=== PATIENT | female | born 1985 | race African-American/Black ===

== ENCOUNTER 2016-06-11 13:12 | Emergency (ER) | payer MEDICAID ==
[~2016-06-11] VITALS: Ht 172.7 cm; Wt 81.0 kg
[~2016-06-11 13:12] MED LIST: ZOFR4TAB3 SL
[2016-06-11 13:13] VITALS: BP 132/61; PULSE 66; RESP 16; TEMP 97.6; O2SAT 98
[2016-06-11 13:42] VITALS: BP 102/66; PULSE 62; RESP 18; TEMP 97.9; O2SAT 100
[2016-06-11 15:16] LABS: BLOOD, URINE NEG (NEG); COMMENT (UR) CULT NOT INDICATED; CULTURE IF INDICATED CULT NOT INDICATED; GLUCOSE,URINE NEG (NEG); KETONE, URINE NEG (NEG); NITRITE,URINE NEG (NEG); SQUAMOUS EPITHELIAL CELL URINE 2 /hpf (0-5); URINE COLOR YELLOW (YELLW/STRAW)
--- NOTE | 2016-06-11 15:16 | PD ---
HPI Chief Complaint: Related Problem Time Seen by Provider: 14:03 Travel History International Travel<30 days: No Contact w/Intl Traveler<30days: No Traveled to known affect area: No History of Present Illness HPI This is a 30-year-old female who presents to the emergency department 12 weeks by dates with lower abdominal cramping is been present for 3 days, intermittent, sharp and stabbing, worse than pain she's had with pregnancies in the past. She denies any vaginal discharge, dysuria, frequency or urgency. She 's been 6 times in the past and has had 3 miscarriages. PFSH Past Medical History Asthma: Yes Cancer: No Cardiovascular Problems: No Diabetes: No Diminished Hearing: No Hepatitis: No Hiatal Hernia: No Hypertension: No Respiratory: Yes (ASTHMA) Thyroid Disease: No ?: : 4 Para: 2 Miscarriage: 2 : 0 Dilation and Curettage (D&C): Yes Past Surgical History Section: Yes Pacemaker: No Other Surgery: No Social History Alcohol Use: No Tobacco Use: No Substance Use: No Allergies-Medications (Allergen,Severity, Reaction): Coded Allergies: No Known Allergies (Verified , 06/11/16) Reported Meds & Prescriptions Reported Meds & Active Scripts Active Zofran Odt (Ondansetron Odt) 4 Mg Tab 4 Mg SL Q6HR PRN Review of Systems Except as stated in HPI: all other systems reviewed are Neg Physical Exam Narrative GENERAL: Well-nourished, well-developed patient. SKIN: Warm and dry. HEAD: Normocephalic. EYES: No scleral icterus. No injection or drainage. NECK: Supple, trachea midline. CARDIOVASCULAR: Regular rate and rhythm without murmurs. RESPIRATORY: Breath sounds equal bilaterally. No accessory muscle use. GASTROINTESTINAL: Abdomen soft, non-tender, nondistended. MUSCULOSKELETAL: No cyanosis, or edema. Data Data Last Documented VS Vital Signs Date Time Temp Pulse Resp B/P Pulse Ox O2 Delivery O2 Flow Rate FiO2 06/11/16 13:42 97.9 62 18 102/66 100 Room Air Orders Urinalysis - C+S If Indicated (06/11/16 14:04) Ed Poc Ultrasound (06/11/16 ) MDM Medical Decision Making Medical Screen Exam Complete: Yes Emergency Medical Condition: Yes Interpretation(s) Afebrile, normotensive Differential Diagnosis Urinary tract infection, ectopic , round ligament pain Narrative Course This is a 30-year-old female who presents to the emergency department with abdominal pain in the setting of early . A portable care ultrasound confirms an intrauterine with heart rate in the 180s. Urinalysis is negative for urinary tract infection. I don't suspect a surgical etiology of the patient's symptoms. She is very well-appearing. I think she can be discharged home. Procedures Procedure Narrative Ultrasound: Intrauterine with a heart rate of 182 Diagnosis Primary Impression: Abdominal pain affecting Patient Instructions: General Instructions Additional Instructions: If you develop severe or worsening abdominal pain, fever>100.4, persistent vomiting or inability to eat or drink return to the emergency department immediately. Follow-up with your certified scrub tech as scheduled. Med/Other Pt SpecificInfo: No Change to Meds Disposition: 01 DISCHARGE HOME Condition: Stable Anna Sotelo MD Jun 11, 2016 15:16
[2016-06-11] MEDS ORDERED: DOXY10TA PO (15:40)
[2016-06-11 16:36] VITALS: BP 134/66; TEMP 98.3
[2016-07-17] MEDS ORDERED: CONCCAP2 PO (09:15)
[2016-09-12] MEDS ORDERED: AMOX500T PO (16:39)
== END 2016-06-11 16:00 | disposition home or self-care (01) ==
LOC: NEPE 13:12
DX: O26.891 Other specified pregnancy related conditions, first trimester (principal); R10.30 Lower abdominal pain, unspecified; O26.21 Pregnancy care for patient with recurrent pregnancy loss, first trimester; Z3A.12 12 weeks gestation of pregnancy; Z87.09 Personal history of other diseases of the respiratory system
CPT/HCPCS: 81001; 99284

== ENCOUNTER 2016-12-31 01:35 | Inpatient (IN) | payer MEDICAID, OTHER ==
[~2016-12-31] VITALS: Ht 172.7 cm; Wt 92.5 kg
[2016-12-31] VITALS (16 sets, daily range): BP systolic 72–125; BP diastolic 21–60; PULSE 64–87; RESP 16–18; TEMP 97.9–98.6
[~2016-12-31 01:35] MED LIST changes: +AMOX500T PO; +CONCCAP2 PO; -ZOFR4TAB3 SL
--- NOTE | 2016-12-31 02:00 | PD ---
HPI Chief Complaint Contractions Date Seen: Dec 31, 2016 Time Seen: 01:48 Travel History International Travel<30 Days: No Contact w/Intl Traveler<30Days: No Known Affected Area: No History of Present Illness HPI 31-year-old she for at 40 weeks gestation per patient history. Patient has two prior C-sections, I have only one incision type which is low transverse from [place]. No incision type with her other . GBS was positive in her urine this . Patient refuses exam at present. Dr Nichole was here at the desk and checked the patient who is 7cm however patient refuses additional exams. Also has history of low platelets with this that was never followed up. Membranes ruptured here after arrival. Para: 3 : 4 History Past Medical History Medical History: Denies Significant Hx Obstetric History Obstetric History Repeat Allergies-Medications (Allergen,Severity, Reaction): Coded Allergies: No Known Allergies (Verified , 07/17/16) Home Meds Active Scripts Amoxicillin 500 Mg [id number] Mg PO TID #30 TAB Ref 0 Prov:Guerita Lloyd 09/12/16 Vit W/ Fe Fum-Iron Po (Concept Dha 53.5-38-1 mg)1 Cap Cap1 Tab PO DAILY #30 BOTTLE Ref 11 Prov:Guerita Lloyd 07/17/16 Vit W/ Fe Fum-Iron Po (Concept Dha 53.5-38-1 mg)1 Cap Cap Sample #3 Prov:Guerita Lloyd 07/17/16 Review of Systems Except as stated in HPI: all other systems reviewed are Neg (Difficult to assess as patient is verbally abusive) Physical Exam Narrative GENERAL: Well-nourished, well-developed patient. SKIN: Warm and dry. HEAD: Normocephalic and atraumatic. EYES: No scleral icterus. No injection or drainage. ENT: No nasal drainage noted. Mucous membranes pink. Airway patent. NECK: Supple, trachea midline. No JVD. CARDIOVASCULAR: Regular rate and rhythm without murmurs, gallops, or rubs. RESPIRATORY: Breath sounds equal bilaterally. No accessory muscle use. BREASTS: Bilateral exam showed no masses , no retractions, no nipple discharge. ABDOMEN/GI: Unable to examine as patient refuses GENITOURINARY: Patient refuses exam External Genitalia: intact and normal in appearance BUS glands: [-] Cervix: [-] Dilatation: [-] Effacement: [-] Station: [-] Presentation: [-] Membranes: [intact or ruptured] Grossly ruptured, clear Uterine Contractions: [-] Difficult to assess as patient is rolling from side to side, appears every 8 minutes FHT's: Category: [-1] Baseline: [-145] Reactive: [-mod] Variability: [mod-] Decels: [-absent] EXTREMITIES: No cyanosis or edema. BACK: Nontender without obvious deformity. No CVA tenderness. NEUROLOGICAL: Awake and alert. Motor and sensory grossly within normal limits. Five out of 5 muscle strength in all muscle groups. Normal speech. Data Data Vital Signs Reviewed: Yes Orders Ob (2e) Additional Admit Info (12/31/16 01:38) MDM Plan 31yo with two prior . Patient was almost just after her last . She is very verbally abusive to staff. I have counselled this patient that I cannot reasonably ascertain the safety of a after two prior cesareans if I do not have the op note for both. Althoug she had a successful after her first , she thereafter had another which may have increased her chances of encountering a uterine rupture with a vaginal delivery. Additionally, it is very difficult to monitor this patient due to extreme movement. I have recommended that the most safe mode of delivery with the medical records available would be repeat . Patient refuses stating that "I will deliver vaginally and I will marleny everyone." Diagnosis Diagnosis: Primary Impression: 40 weeks gestation of Additional Impressions: Previous delivery affecting , antepartum Poor patient attendance of care Positive GBS test Katiana Villanueva MD Dec 31, 2016 02:00
[2016-12-31] MEDS ORDERED: LACTATED RINGER'S 1000 ML INJ 1,000 ML IV PRN (02:01)
[2016-12-31] MEDS ORDERED: LACTATED RINGER'S 1000 ML INJ 1,000 ML IV SCH (02:01)
[2016-12-31] MEDS ORDERED: PENICILLIN G POTASSIUM INJ 5,000,000 UNITS in SODIUM CHLORIDE 0.9% INJ 100 ML IV ONE (02:15)
[2016-12-31] MEDS ORDERED: OXYTOCIN 30 UNITS-500ML PREMIX 500 ML IV ONE (02:15)
[2016-12-31] MEDS ORDERED: CITRIC ACID-SODIUM CITRATE LIQ 30 ML UDC PO SCH (02:15)
[2016-12-31] MEDS ORDERED: SODIUM CHLORID 0.9% 500 ML INJ 500 ML IV PRN (02:15)
[2016-12-31] MEDS ORDERED: LIDOCAINE HCL 1% 50 ML VIAL INFIL PRN (02:15)
[2016-12-31] MEDS ORDERED: MINERAL OIL 10 ML VIAL TOPICAL PRN (02:15)
[2016-12-31] MEDS ORDERED: ONDANSETRON HCL 4 MG/2 ML VIAL IV PRN (02:15)
[2016-12-31] MEDS ORDERED: LIDOCAINE HCL 1% 50 ML VIAL I-DERMAL PRN (02:15)
[2016-12-31] MEDS ORDERED: SODIUM CHLOR 0.9% 1000 ML INJ 1,000 ML IV PRN (02:21)
[2016-12-31 02:23] LABS: AUTOMATED NEUTROPHIL # 11.1 TH/MM3 (1.8-7.7); BASOPHIL # 0.1 TH/MM3 (0-0.2); BASOPHIL % 0.6 % (0.0-2.0); EOSINOPHIL # 0.1 TH/MM3 (0-0.4); EOSINOPHIL % 0.5 % (0.0-4.0); HEMATOCRIT 34.9 % (35.0-46.0); MEAN CELL VOLUME 88.2 FL (80.0-100.0); MEAN CORPUSCULAR HEMOGLOBIN 28.5 PG (27.0-34.0); MEAN CORPUSCULAR HGB CONC 32.3 % (32.0-36.0); MONO % 4.7 % (0.0-8.0); NEUT % 86.2 % (16.0-70.0); PLATELET COUNT 152 TH/MM3 (150-450); RED BLOOD COUNT 3.95 MIL/MM3 (4.00-5.30); RED CELL DISTRIBUTION WIDTH 13.9 % (11.6-17.2); WHITE BLOOD COUNT 12.9 TH/MM3 (4.0-11.0)
[2016-12-31 02:25] LABS: HEMO FLAGS AUTO DIFF
[2016-12-31 02:33] LABS: BLOOD GAS BASE EXCESS -4.3 mmol/L (-2-2); BLOOD GAS O2 HGB SATURATION 30 % (90-100); CORD BLOOD GAS HCO3 21 mmol/L (21-29); CORD BLOOD GAS PCO2 47 mmHG (34-78); CORD BLOOD GAS PH 7.28 (7.14-7.42); CORD BLOOD GAS PO2 19 mmHG (3.0-40.0)
[2016-12-31 02:34] LABS: DRAW SITE CORD BLOOD; STAT YES
--- NOTE | 2016-12-31 02:34 | HHI.HP ---
History & Physical H&P HPI HPI Chief Complaint Contractions Date Seen: Dec 31, 2016 Time Seen: 01:48 Travel History International Travel<30 Days: No Contact w/Intl Traveler<30Days: No Known Affected Area: No History of Present Illness HPI 31-year-old she for at 40 weeks gestation per patient history. Patient has two prior C-sections, I have only one incision type which is low transverse from [place]. No incision type with her other . GBS was positive in her urine this . Patient refuses exam at present. Dr Nichole was here at the desk and checked the patient who is 7cm however patient refuses additional exams. Also has history of low platelets with this that was never followed up. Membranes ruptured here after arrival. Para: 3 : 4 History (Limited) History Past Medical History Medical History: Denies Significant Hx Obstetric History Obstetric History Repeat Allergies-Medications Allergies-Medications (Allergen,Severity, Reaction): Coded Allergies: No Known Allergies (Verified , 07/17/16) Home Meds Active Scripts Amoxicillin 500 Mg Cvr087 Mg PO TID #30 TAB Ref 0 Prov:Guerita Lloyd 09/12/16 Vit W/ Fe Fum-Iron Po (Concept Dha 53.5-38-1 mg)1 Cap Cap1 Tab PO DAILY #30 BOTTLE Ref 11 Prov:Guerita Lloyd 07/17/16 Vit W/ Fe Fum-Iron Po (Concept Dha 53.5-38-1 mg)1 Cap Cap Sample #3 Prov:Guerita Lloyd 07/17/16 ROS Review of Systems Except as stated in HPI: all other systems reviewed are Neg (Difficult to assess as patient is verbally abusive) Physical Exam Physical Exam Narrative GENERAL: Well-nourished, well-developed patient. SKIN: Warm and dry. HEAD: Normocephalic and atraumatic. EYES: No scleral icterus. No injection or drainage. ENT: No nasal drainage noted. Mucous membranes pink. Airway patent. NECK: Supple, trachea midline. No JVD. CARDIOVASCULAR: Regular rate and rhythm without murmurs, gallops, or rubs. RESPIRATORY: Breath sounds equal bilaterally. No accessory muscle use. BREASTS: Bilateral exam showed no masses , no retractions, no nipple discharge. ABDOMEN/GI: Unable to examine as patient refuses GENITOURINARY: Patient refuses exam External Genitalia: intact and normal in appearance BUS glands: [-] Cervix: [-] Dilatation: [-] Effacement: [-] Station: [-] Presentation: [-] Membranes: [intact or ruptured] Grossly ruptured, clear Uterine Contractions: [-] Difficult to assess as patient is rolling from side to side, appears every 8 minutes FHT's: Category: [-1] Baseline: [-145] Reactive: [-mod] Variability: [mod-] Decels: [-absent] EXTREMITIES: No cyanosis or edema. BACK: Nontender without obvious deformity. No CVA tenderness. NEUROLOGICAL: Awake and alert. Motor and sensory grossly within normal limits. Five out of 5 muscle strength in all muscle groups. Normal speech. Data Data Data Vital Signs Reviewed: Yes Orders Ob (2e) Additional Admit Info (12/31/16 01:38) MDM MDM Plan 31yo with two prior . Patient was almost just after her last . She is very verbally abusive to staff. I have counselled this patient that I cannot reasonably ascertain the safety of a after two prior cesareans if I do not have the op note for both. Althoug she had a successful after her first , she thereafter had another which may have increased her chances of encountering a uterine rupture with a vaginal delivery. Additionally, it is very difficult to monitor this patient due to extreme movement. I have recommended that the most safe mode of delivery with the medical records available would be repeat . Patient refuses stating that "I will deliver vaginally and I will marleny everyone." Diagnosis Diagnosis: Primary Impression: 40 weeks gestation of Additional Impressions: Previous delivery affecting , antepartum Poor patient attendance of care Positive GBS test Katiana Villanueva MD Dec 31, 2016 02:34
[2016-12-31] MEDS ORDERED: ZOLPIDEM TARTRATE 5 MG TAB PO PRN (02:45)
[2016-12-31] MEDS ORDERED: OXYTOCIN 30 UNITS-500ML PREMIX 500 ML IV SCH (02:45)
[2016-12-31] MEDS ORDERED: DOCUSATE SODIUM 50 MG/SENNA 8.6 MG TAB PO PRN (02:45)
[2016-12-31] MEDS ORDERED: BENZOCAINE 20% TOPICAL SPRAY 60 ML CAN TOPICAL PRN (02:45)
[2016-12-31] MEDS ORDERED: ONDANSETRON ODT 4 MG TAB PO PRN (02:45)
[2016-12-31] MEDS ORDERED: IBUPROFEN 600 MG TAB PO PRN (02:45)
[2016-12-31] MEDS ORDERED: WITCH HAZEL 50%/GLYCERIN 12.5% 40 PAD JAR TOPICAL PRN (02:45)
[2016-12-31] MEDS ORDERED: SODIUM CHLORIDE 0.9% FLUSH 10 ML FLUSH IV FLUSH PRN (02:45)
[2016-12-31] MEDS ORDERED: ACETAMINOPHEN 325 MG TAB PO PRN (02:45)
[2016-12-31] MEDS ORDERED: ALUMINUM/MAGNESIUM/SIMETH 30 ML CUP PO PRN (02:45)
[2016-12-31 02:48] LABS: PLATELET ESTIMATE SMEAR NORMAL (NORMAL); PLATELET MORPHOLOGY NORMAL (NORMAL); SCAN/DIFF AUTO DIFF CONFIRMED
--- NOTE | 2016-12-31 03:00 | PD.OB.DELI ---
Delivery Date: Dec 31, 2016 Anesthesia: None Episiotomy: None Vaginal Delivery: Normal, Spontaneous, , Precipitous Presentation: Occiput anterior Nuchal Cord: x1 Delayed cord clamping (45 sec): No (Thick meconium noted) : Female, Single One Minute : 8 Five Minute : 9 Weight: 2965gms Placenta: Spontaneous delivery, Intact, 3 vessel cord, Cord pH Laceration: Vaginal laceration, 2 deg (Right periurethral laceration extending into the vagina. Second degree midline laceration repaired) Repair: Chromic running Additional Information EBL 300cc Katiana Villanueva MD Dec 31, 2016 03:00
[2016-12-31 03:32] LABS: AMPHETAMINE, URINE NEG (NEG); BARBITURATES, URINE NEG (NEG); BLOOD, URINE SMALL (NEG); COCAINE, URINE NEG (NEG); COMMENT (UR) CULTURE INDICATED; CULTURE IF INDICATED CULTURE INDICATED; GLUCOSE,URINE NEG (NEG); KETONE, URINE 150 mg/dL (NEG); MUCUS URINE FEW /lpf (OCC); NITRITE,URINE NEG (NEG); PH, URINE 6.5 (5.0-8.5); SQUAMOUS EPITHELIAL CELL URINE 3 /hpf (0-5); URINE COLOR YELLOW (YELLW/STRAW)
[2016-12-31] MEDS ORDERED: PENICILLIN G POTASSIUM INJ 2,500,000 UNITS in SODIUM CHLORIDE 0.9% INJ 100 ML IV SCH (06:15)
[2016-12-31] MEDS ORDERED: SODIUM CHLORIDE 0.9% FLUSH 10 ML FLUSH IV FLUSH SCH (09:00)
--- NOTE | 2016-12-31 09:09 | HHI.OB ---
Subjective Post Day: 0 Remarks day #0. AFVSS overnight. Pain well controlled without medication. Lochia is more than a period [moderate]. Denies dysuria. She is feeding the baby via breast. Appetite good. No nausea or vomiting. No flatus. Known bowel movement. Ambulating well. Denies calf pain, shortness of breath, or cough. Otherwise, she is doing well this morning and has no other complaints. Objective Vitals/I&O Vital Signs Date Time Temp Pulse Resp B/P Pulse Ox O2 Delivery O2 Flow Rate FiO2 12/31/16 08:00 97.9 80 16 12/31/16 08:00 114/60 12/31/16 05:05 98.5 64 18 104/49 12/31/16 03:35 16 12/31/16 03:31 70 121/47 12/31/16 03:20 16 12/31/16 03:16 68 122/56 12/31/16 03:11 67 95/58 12/31/16 03:05 18 12/31/16 03:01 72 72/21 12/31/16 02:58 18 12/31/16 02:46 83 114/35 12/31/16 02:45 18 12/31/16 02:31 80 125/51 12/31/16 02:30 18 12/31/16 02:16 86 123/45 Objective Remarks GENERAL: Well-nourished, well-developed patient. CARDIOVASCULAR: Regular rate and rhythm without murmurs, gallops, or rubs. RESPIRATORY: Breath sounds equal bilaterally. No accessory muscle use. ABDOMEN/GI: Abdomen soft, non-tender. Fundus: Firm, non-tender above umbilicus and deviated to the right GENITOURINARY: Moderate bleeding. EXTREMITIES: No cyanosis or edema, non-tender, without signs of DVT. Medications and IVs Current Medications Medications (Trade) Dose Ordered Sig/Joaquin Route Start Time Stop Time Status Last Admin (NS Flush) 2 ml BID IV FLUSH 12/31/16 09:00 (NS Flush) 2 ml UNSCH PRN IV FLUSH 12/31/16 02:45 (Tylenol) 650 mg Q4H PRN PO 12/31/16 02:45 (Motrin) 600 mg Q6H PRN PO 12/31/16 02:45 (Percocet 5-325 Mg) 1 tab Q4H PRN PO 12/31/16 02:45 (Americaine 20% Top Spr) 1 spray Q4H PRN TOPICAL 12/31/16 02:45 (Tucks Pads) 1 applic QID PRN TOPICAL 12/31/16 02:45 (Nadya-Colace) 2 tab Q12H PRN PO 12/31/16 02:45 (Ambien) 5 mg HS PRN PO 12/31/16 02:45 (M-M-R Ii Inj) 0.5 ml ONCE ONCE SQ 12/31/16 16:00 12/31/16 16:01 (Boostrix Inj) 0.5 ml ONCE ONCE IM 12/31/16 16:00 12/31/16 16:01 (Mag-Al Plus Susp Liq) 15 ml Q8H PRN PO 12/31/16 02:45 (Zofran Odt) 4 mg Q6H PRN PO 12/31/16 02:45 Assessment/Plan Assessment and Plan 31y/o female who is PPD#0 s/p -Continue routine care -Motrin and Percocet PRN for pain - patient is refusing pain medications at this time -Pericolase PRN for constipation, tucks pads and benzocaine for hemorrhoids -Encouraged OOB. Advised pelvic rest for 6 wks -Will need a follow-up appointment within 6 wks -Patient does not want control Discussed with Dr. Villanueva Discharge Planning Discharge home in 1-2 days Maria M Tobar MD R1 Dec 31, 2016 09:09
[2016-12-31] MEDS ORDERED: MEASLES, MUMPS, RUBELLA VACCINE 0.5 ML VIAL SQ ONE (16:00)
[2016-12-31] MEDS ORDERED: DIPHTH/TETANUS/ACEL PERTUSSIS (BOOSTER) 0.5 ML VIAL/PFS IM ONE (16:00)
[2017-01-01 08:00] VITALS: BP 83/52; PULSE 59; RESP 18; TEMP 98.4
--- NOTE | 2017-01-01 08:58 | HHI.OB ---
Subjective Post Day: 1 Remarks Patient is a 31-year-old delivered at 40 weeks. Patient is day one after a . Patient's pain is minimal; patient is not requiring pain medication at this time. Patient reports moderate bleeding. Patient denies chest pain and shortness of breath. Patient reports eating and drinking without any nausea or vomiting. Patient has passed gas but has not had a bowel movement. Patient is walking without lower extremity pain. Patient states that she will think about options for contraception. Patient has decided to breast- feed. Objective Vitals/I&O Vital Signs Date Time Temp Pulse Resp B/P Pulse Ox O2 Delivery O2 Flow Rate FiO2 12/31/16 20:00 98.6 87 18 96/53 Objective Remarks GENERAL: Well-nourished, well-developed patient. CARDIOVASCULAR: Regular rate and rhythm without murmurs, gallops, or rubs. RESPIRATORY: Breath sounds equal bilaterally. No accessory muscle use. ABDOMEN/GI: Abdomen soft, non-tender. Fundus: Firm, non-tender above umbilicus and deviated to the right. GENITOURINARY: Moderate bleeding. EXTREMITIES: No cyanosis or edema, non-tender, without signs of DVT. Medications and IVs Current Medications Medications (Trade) Dose Ordered Sig/Joaquin Route Start Time Stop Time Status Last Admin (NS Flush) 2 ml BID IV FLUSH 12/31/16 09:00 (NS Flush) 2 ml UNSCH PRN IV FLUSH 12/31/16 02:45 (Tylenol) 650 mg Q4H PRN PO 12/31/16 02:45 (Motrin) 600 mg Q6H PRN PO 12/31/16 02:45 (Percocet 5-325 Mg) 1 tab Q4H PRN PO 12/31/16 02:45 (Americaine 20% Top Spr) 1 spray Q4H PRN TOPICAL 12/31/16 02:45 12/31/16 13:45 (Tucks Pads) 1 applic QID PRN TOPICAL 12/31/16 02:45 12/31/16 13:44 (Nadya-Colace) 2 tab Q12H PRN PO 12/31/16 02:45 (Ambien) 5 mg HS PRN PO 12/31/16 02:45 (Mag-Al Plus Susp Liq) 15 ml Q8H PRN PO 12/31/16 02:45 (Zofran Odt) 4 mg Q6H PRN PO 12/31/16 02:45 Assessment/Plan Assessment and Plan 31y/o who is PPD#1 s/p . * Continue routine care. * Motrin and Percocet PRN for pain - patient is not requiring pain meds at this time. * Pericolase PRN for constipation, tucks pads and benzocaine for hemorrhoids. * Encouraged OOB. * Advised pelvic rest for 6 wks. * Will need a follow-up appointment within 6 wks. * Contraception: undecided. * Discharge tomorrow. jennifer Rios Discharge Planning Discharge home in 1-2 days Shweta Hammonds MD R1 Jan 01, 2017 08:58
[2017-01-01 14:21] LABS: RAPID PLASMA REAGIN SCREEN NON-REACTIVE (NON-REACTVE)
[2017-01-01 19:49] VITALS: BP 109/56; PULSE 76; RESP 18; TEMP 98.1
[2017-01-02] MEDS: oxyCODONE/ACETAMINOPHEN 5 MG/325 MG TAB PO PRN ×2 (06:17→10:26)
[2017-01-02 07:55] VITALS: BP 110/58; PULSE 65; RESP 18; TEMP 97.7
[2017-01-02] MEDS ORDERED: IBUP-232 PO (09:13)
--- NOTE | 2017-01-02 09:13 | HHI.DCPOC ---
Discharge Care Plan Diagnosis: (1) Your Health Problems Are: Vaginal delivery Report Symptoms to Your Doctor -Temperature above 100.5 degrees -Redness, of incision or excessive or foul smelling drainage -Unusual pain or calf pain -Increased vaginal bleeding -Painful or difficulty urinating -Feelings of extreme sadness or anxiety after 2 weeks Directions to Meet Your Goals Take your medications as prescribed Follow your dietary instruction Follow activity as directed Ensure plenty of rest for recovery Drink fluids for hydration Keep your appointments as scheduled Take your immunizations and boosters as scheduled If your symptoms worsen call your PCP, if no PCP go to Urgent Care Center or Emergency Room Smoking is Dangerous to Your Health. Avoid second hand smoke Call the 24-hour crisis hotline for domestic abuse at Shweta Hammonds MD R1 Jan 02, 2017 09:13
--- NOTE | 2017-01-02 10:18 | HHI.OB ---
Subjective Post Day: 2 Remarks Patient is a 31-year-old delivered at 40 weeks. Patient is day 2 after a . Patient's pain is controlled; patient asked for pain medication this morning. Patient reports moderate bleeding. Patient denies chest pain and shortness of breath. Patient reports eating and drinking without any nausea or vomiting. Patient has passed gas but has not had a bowel movement. Patient is walking without lower extremity pain. Patient states that she will think about options for contraception. Patient has decided to breast-feed. Objective Vitals/I&O Vital Signs Date Time Temp Pulse Resp B/P Pulse Ox O2 Delivery O2 Flow Rate FiO2 01/01/17 19:49 76 18 109/56 01/01/17 19:49 98.1 Objective Remarks GENERAL: Well-nourished, well-developed patient. CARDIOVASCULAR: Regular rate and rhythm without murmurs, gallops, or rubs. RESPIRATORY: Breath sounds equal bilaterally. No accessory muscle use. ABDOMEN/GI: Abdomen soft, non-tender. Fundus: Firm, non-tender, below umbilicus. GENITOURINARY: Moderate bleeding. EXTREMITIES: No cyanosis or edema, non-tender, without signs of DVT. Medications and IVs Current Medications Medications (Trade) Dose Ordered Sig/Joaquin Route Start Time Stop Time Status Last Admin (NS Flush) 2 ml BID IV FLUSH 12/31/16 09:00 (NS Flush) 2 ml UNSCH PRN IV FLUSH 12/31/16 02:45 (Tylenol) 650 mg Q4H PRN PO 12/31/16 02:45 (Motrin) 600 mg Q6H PRN PO 12/31/16 02:45 01/02/17 03:52 (Percocet 5-325 Mg) 1 tab Q4H PRN PO 12/31/16 02:45 01/02/17 06:17 (Americaine 20% Top Spr) 1 spray Q4H PRN TOPICAL 12/31/16 02:45 12/31/16 13:45 (Tucks Pads) 1 applic QID PRN TOPICAL 12/31/16 02:45 12/31/16 13:44 (Nadya-Colace) 2 tab Q12H PRN PO 12/31/16 02:45 01/02/17 08:03 (Ambien) 5 mg HS PRN PO 12/31/16 02:45 (Mag-Al Plus Susp Liq) 15 ml Q8H PRN PO 12/31/16 02:45 (Zofran Odt) 4 mg Q6H PRN PO 12/31/16 02:45 Assessment/Plan Assessment and Plan 31y/o who is PPD#2 s/p . * Continue routine care. * Motrin and Percocet PRN for pain. * Pericolase PRN for constipation, tucks pads and benzocaine for hemorrhoids. * Encouraged OOB. * Advised pelvic rest for 6 wks. * Will need a follow-up appointment within 6 wks. * Contraception: undecided. * Discharge today. dw Dr. Tello Discharge Planning Discharge home in 1-2 days Shweta Hammonds MD R1 Jan 02, 2017 10:18 Shweta Hammonds MD R1 Jan 02, 2017 10:18
[2017-01-04 10:19] LABS: OBMETHADONE UR NEG (NEG); PHENCYCLIDINE URINE NEG (NEG)
[2017-01-04 10:20] LABS: BATH SALTS (MDPV) UR NEG (NEG); ECSTASY (MDMA) UR NEG (NEG); GABAPENTIN UR NEG (NEG); HEROIN (6-ACETYLMORPHINE) UR NEG (NEG); HYDROMORPHONE U NEG (NEG); K2 SPICE UR NEG (NEG); OXYCODONE (PERCODAN) NEG (NEG)
== END 2017-01-02 16:27 | disposition home or self-care (01) | DRG 775 ==
LOC: HOBED 01:35 → H2EA 01:38 → H1EA 04:45
PROVIDERS: ADMIT Obstetrics & Gynecology Obstetrics; ATTEND Obstetrics & Gynecology Obstetrics
PROC: 10E0XZZ Delivery of Products of Conception, External Approach (ICD-10-PCS; principal; 2016-12-31)
PROC: 0KQM0ZZ Repair Perineum Muscle, Open Approach (ICD-10-PCS; 2016-12-31)
DX: O34.211 Maternal care for low transverse scar from previous cesarean delivery (principal); D69.6 Thrombocytopenia, unspecified; O99.12 Other diseases of the blood and blood-forming organs and certain disorders involving the immune mechanism complicating childbirth; O70.1 Second degree perineal laceration during delivery; O99.824 Streptococcus B carrier state complicating childbirth; Z37.0 Single live birth; Z3A.40 40 weeks gestation of pregnancy
CPT/HCPCS: 80307; 81001; 82805; 84112; 85025; 86592; 86703; 87086; 88307; G0481; J2590; J7120

== ENCOUNTER 2018-07-18 03:56 | Inpatient (IN) ==
[2018-07-18] MEDS ORDERED: Naloxone Inj 0.4 MG/ML Vial IV.PUSH PRN ×2 (04:29→09:30)
[2018-07-18] MEDS ORDERED: fentaNYL Citrate Inj 100 MCG/2 ML Ampul IV.PUSH PRN ×2 (04:29)
[2018-07-18] MEDS ORDERED: Sod Chloride 0.9% Inj 1,000 ML IV.CONT PRN (04:29)
[2018-07-18] MEDS ORDERED: Penicillin G Potassium Inj 5,000,000 UNIT in Sodium Chloride 0.9% Inj 100 ML IV.SIG ONE (04:29)
[2018-07-18] MEDS ORDERED: Oxytocin 30 Units/500ml Premix 30 UNITS/500 ML BAG IV.SIG ONE (04:29)
[2018-07-18] MEDS ORDERED: Sodium Chlor 0.9% Inj 500 ML IV.SIG PRN (04:29)
[2018-07-18] MEDS ORDERED: Citric Acid/Sodium Citrate Liq 30 ML UDC PO SCH (04:30)
--- NOTE | 2018-07-18 04:36 | ED ---
History of Present Illness Primary Care Physician: NOT REQUIRED Maisha Lane Chief Complaint: Contractions and water broke History of Present Illness: Patient is 32-year-old black female at 40 weeks with spontaneous rupture membranes and contractions sent in by Maisha Lane. Amnio sure is positive she is gross rupture membranes as well, contractions are noted she is in active labor at this time, heart rate tracing reactive Weeks Gestation:: 40 Para: 3 : 4 - Inpatient Certification I certify that the inpatient services were ordered in accordance with Medicare regulations governing the order. This includes certification that hospital inpatient services are reasonable and necessary and in the case of services not specified as inpatient-only under 42 CFR 419.22(n), that they are appropriately provided as inpatient services in accordance to with the 2-midnight benchmark under 43 CFR 412.3(e) Estimated Total Length of Stay (Days): 3 Plans for Post Hospital Care: Home Review of Systems All other systems reviewed negative except as stated in HPI [facility], [facility] - Medical History Medical History: Medical History (Last Updated 07/18/18 @ 04:33 by Jose Alfredo Tello MD) Asthma - Tobacco History Smoking Status: Never smoker - Alcohol History How Often Do You Have a Drink Containing Alcohol: Never - Substance Use History Substance History: No History of Abuse - Travel History History of Recent Travel: No Recent Travel in the [place] Within the Last 8 Weeks: No Recent Travel Out of the Country Within the Last 8 Weeks: No Medications and Allergies Active Medications: Active Medications Citric Acid/Sodium Citrate (Sodium Citrate/Citric Acid Liq) 30 ml PO [facility] Stop: 07/22/18 04:29 Fentanyl Citrate (Fentanyl Inj) 50 mcg IV.PUSH Q1H PRN PRN Reason: Pain Scale 3 - 5 Fentanyl Citrate (Fentanyl Inj) 100 mcg IV.PUSH Q1H PRN PRN Reason: PAIN SCALE 6 TO 10 Lactated Ringer's (Lr 1000 Ml Inj) 1,000 mls @ 3,000 mls/hr IV.SIG UNSCH PRN PRN Reason: compromise or epidural Lactated Ringer's (Lr 1000 Ml Inj) 1,000 mls @ 125 mls/hr IV.CONT .Q8H [facility] Sodium Chloride (Ns Inj) 1,000 mls @ 100 mls/hr IV.CONT .Q10H PRN PRN Reason: SEE LABEL COMMENTS Lidocaine HCl (Xylocaine 1% Inj) 0.1 ml I-DERMAL PRN PRN PRN Reason: For IV start Stop: 07/21/18 04:28 Lidocaine HCl (Xylocaine 1% Inj) 10 ml INFILTRATN PRN PRN PRN Reason: For episiotomy repair Stop: 07/20/18 04:28 Mineral Oil (Muri-Lube Oil) 10 ml TOPICAL PRN PRN PRN Reason: PRN perineal massage Naloxone HCl (Narcan Inj) 0.1 mg IV.PUSH Q2M PRN PRN Reason: for opiate reversal Allergies Allergy/AdvReac Type Severity Reaction Status Date / Time No Known Allergies Allergy Uncoded 12/31/16 05:22 Exam Vital signs: Vital Signs 07/18/18 04:15 Respiratory Rate 16 Narrative: GENERAL: Well-nourished, well-developed patient. SKIN: Warm and dry. HEAD: Normocephalic and atraumatic. EYES: No scleral icterus. No injection or drainage. ENT: No nasal drainage noted. Mucous membranes pink. Airway patent. NECK: Supple, trachea midline. No JVD. CARDIOVASCULAR: Regular rate and rhythm without murmurs, gallops, or rubs. RESPIRATORY: Breath sounds equal bilaterally. No accessory muscle use. BREASTS: Bilateral exam showed no masses , no retractions, no nipple discharge. ABDOMEN/GI: Abdomen soft, non-tender, bowel sounds present, no rebound, no guarding Gravid to [40-] weeks size Fundal Height: [-40] GENITOURINARY: External Genitalia: intact and normal in appearance BUS glands: [-] Cervix: [mid-] Dilatation: [4-] Effacement: [-100] Station: [0-] Presentation: [-vtx] Membranes: [ ruptured] Uterine Contractions: [reg-] FHT's: Category: [1-] Baseline: [-133] Reactive: [-R] Variability: [mod-] Decels: [none-] EXTREMITIES: No cyanosis or edema. BACK: Nontender without obvious deformity. No CVA tenderness. NEUROLOGICAL: Awake and alert. Motor and sensory grossly within normal limits. Five out of 5 muscle strength in all muscle groups. Normal speech. Results - Labs Group B Strep: Positive Assessment and Plan - Diagnosis (1) Amniotic fluid leaking Code(s): O42.90 - Premature rupture of membranes, unspecified as to length of time between rupture and onset of labor, unspecified weeks of gestation Status : Acute (2) Uterine contractions during Code(s): O62.2 - Other uterine inertia Status: Acute (3) 40 weeks gestation of Code(s): Z3A.40 - 40 weeks gestation of Status: Acute - Plan Plan admit this multiparous patient to labor and delivery, began IV penicillin per GBS protocol, monitor fetus and mother, anticipate vaginal delivery Discharge Plan - Physicians Team ED Provider: Jose Alfredo Tello Primary Care Provider: NOT REQUIRED, - Discharge Instructions Print Language: Maori
[2018-07-18] MEDS ORDERED: Lidocaine 1% Inj 50 ML Vial ONE (04:52)
[2018-07-18] MEDS ORDERED: fentaNYL 2MCG-Bupiv 0.125% Epi 150 ML EPIDURAL ONE (04:57)
[2018-07-18 04:58] LABS: Baso # (Auto) 0.1 th/mm3 (0.0-0.2); Baso % (Auto) 0.7 % (0.0-2.0); Eos # (Auto) 0.2 th/mm3 (0.0-0.4); Eos % (Auto) 1.3 % (0.0-4.0); Hematocrit 31.6 % (35.0-46.0); Hemoglobin 10.3 gm/dL (11.6-15.3); Lymph # (Auto) 1.6 th/mm3 (1.0-4.8); Lymph % (Auto) 12.7 % (9.0-44.0); Mean Corpuscular HGB Conc 32.6 % (32.0-36.0); Mean Corpuscular Volume 85.9 fL (80.0-100.0); Mean Platelet Volume 9.9 fL (7.0-11.0); Mono # (Auto) 0.9 th/mm3 (0.0-0.9); Mono % (Auto) 7.2 % (0.0-8.0); Neut # (Auto) 9.7 th/mm3 (1.8-7.7); Neut % (Auto) 78.1 % (16.0-70.0); Platelet Count 119 th/mm3 (150-450); Red Blood Count 3.68 mil/mm3 (4.00-5.30); Red Cell Distribution Width 15.4 % (11.6-17.2); White Blood Count 12.4 th/mm3 (4.0-11.0)
[2018-07-18] MEDS ORDERED: Penicillin G Potassium Inj 2,500,000 UNIT in Sodium Chlor 0.9% Inj 100 ML IV.SIG SCH (05:00)
[2018-07-18] MEDS ORDERED: Lidocaine PF 1% Inj 5 ML Vial ONE (05:54)
[2018-07-18] MEDS ORDERED: Lidocaaine 1.5%/Epinephrine 1:200,000 PF Inj 5 ML Amp ONE (05:54)
[2018-07-18] MEDS ORDERED: fentaNYL 2MCG-Bupiv 0.125% Epi 150 ML EPIDURAL PRN (05:58)
[2018-07-18] MEDS ORDERED: fentaNYL Citrate Inj 100 MCG/2 ML Ampul EPIDURAL ONE (05:58)
--- NOTE | 2018-07-18 08:12 | P.OBDELI ---
Weeks Gestation: 40 Patient Started Active Labor: Yes Medical Induction of Labor: No Artificial Rupture of Membrane: No Anesthesia: Epidural Episiotomy: none Vaginal Delivery: Normal, Spontaneous, Presentation: Occiput anterior Nuchal Cord: None Delayed Cord Clamping (45 sec): Yes Placenta: Spontaneous delivery Laceration: 2 deg (bilateral labial laceration repaired. Hemostasis maintained. ) Repair: Chromic running, Vicryl running Estimated blood loss (mL): 150 Male A Delivery Date: 07/18/18 Infant Delivery Time: 07:32 Weight: 3.615 kg score (1 min): 8 score (5 min): 9 Additional Information: Delivered by Dr. Robles Supervised by Dr. Tello.
[2018-07-18] MEDS ORDERED: Benzocaine 20% Top Spray 60 ML Can TOPICAL PRN (09:30)
[2018-07-18] MEDS ORDERED: Oxytocin 30 Units/500ml Premix 30 UNITS/500 ML BAG IV.CONT PRN (09:30)
[2018-07-18] MEDS ORDERED: Acetaminophen 325 MG Tablet PO PRN (09:30)
[2018-07-18] MEDS ORDERED: Witch Hazel 50%/Glyderin 12.5% 40 Pad Jar RECTAL PRN (09:30)
[2018-07-18] MEDS ORDERED: Bisacodyl 10 MG Supp RECTAL PRN (09:30)
--- NOTE | 2018-07-18 09:34 | P.HPOB ---
Patient Name: Christa Ceja Date of : 89 Patient Status: Inpatient Attending Provider: Jose Alfredo Tello Date: 07/18/18 04:31 Initialization Date: 07/18/18 04:31 History of Present Illness Primary Care Physician: NOT REQUIRED Maisha Lane Chief Complaint: Contractions and water broke History of Present Illness: Patient is 32-year-old black female at 40 weeks with spontaneous rupture membranes and contractions sent in by Maisha Lane. Amnio sure is positive she is gross rupture membranes as well, contractions are noted she is in active labor at this time, heart rate tracing reactive Weeks Gestation:: 40 Para: 3 : 4 - Inpatient Certification I certify that the inpatient services were ordered in accordance with Medicare regulations governing the order. This includes certification that hospital inpatient services are reasonable and necessary and in the case of services not specified as inpatient-only under 42 CFR 419.22(n), that they are appropriately provided as inpatient services in accordance to with the 2-midnight benchmark under 43 CFR 412.3(e) Estimated Total Length of Stay (Days): 3 Plans for Post Hospital Care: Home Review of Systems All other systems reviewed negative except as stated in [facility] - Medical History Medical History: Medical History (Last Updated 07/18/18 @ 04:33 by Jose Alfredo Tello MD) Asthma - Tobacco History Smoking Status: Never smoker - Alcohol History How Often Do You Have a Drink Containing Alcohol: Never - Substance Use History Substance History: No History of Abuse - Travel History History of Recent Travel: No Recent Travel in the [place] Within the Last 8 Weeks: No Recent Travel Out of the Country Within the Last 8 Weeks: No Medications and Allergies Active Medications: Active Medications Citric Acid/Sodium Citrate (Sodium Citrate/Citric Acid Liq) 30 ml PO [employer] [facility] Stop: 07/22/18 04:29 Fentanyl Citrate (Fentanyl Inj) 50 mcg IV.PUSH Q1H PRN PRN Reason: Pain Scale 3 - 5 Fentanyl Citrate (Fentanyl Inj) 100 mcg IV.PUSH Q1H PRN PRN Reason: PAIN SCALE 6 TO 10 Lactated Ringer's (Lr 1000 Ml Inj) 1,000 mls @ 3,000 mls/hr IV.SIG UNSCH PRN PRN Reason: compromise or epidural Lactated Ringer's (Lr 1000 Ml Inj) 1,000 mls @ 125 mls/hr IV.CONT .Q8H [facility] Sodium Chloride (Ns Inj) 1,000 mls @ 100 mls/hr IV.CONT .Q10H PRN PRN Reason: SEE LABEL COMMENTS Lidocaine HCl (Xylocaine 1% Inj) 0.1 ml I-DERMAL PRN PRN PRN Reason: For IV start Stop: 07/21/18 04:28 Lidocaine HCl (Xylocaine 1% Inj) 10 ml INFILTRATN PRN PRN PRN Reason: For episiotomy repair Stop: 07/20/18 04:28 Mineral Oil (Muri-Lube Oil) 10 ml TOPICAL PRN PRN PRN Reason: PRN perineal massage Naloxone HCl (Narcan Inj) 0.1 mg IV.PUSH Q2M PRN PRN Reason: for opiate reversal Allergies Allergy/AdvReac Type Severity Reaction Status Date / Time No Known Allergies Allergy Uncoded 12/31/16 05:22 Exam Vital signs: Vital Signs 07/18/18 04:15 Respiratory Rate 16 Narrative: GENERAL: Well-nourished, well-developed patient. SKIN: Warm and dry. HEAD: Normocephalic and atraumatic. EYES: No scleral icterus. No injection or drainage. ENT: No nasal drainage noted. Mucous membranes pink. Airway patent. NECK: Supple, trachea midline. No JVD. CARDIOVASCULAR: Regular rate and rhythm without murmurs, gallops, or rubs. RESPIRATORY: Breath sounds equal bilaterally. No accessory muscle use. BREASTS: Bilateral exam showed no masses , no retractions, no nipple discharge. ABDOMEN/GI: Abdomen soft, non-tender, bowel sounds present, no rebound, no guarding Gravid to [40-] weeks size Fundal Height: [-40] GENITOURINARY: External Genitalia: intact and normal in appearance BUS glands: [-] Cervix: [mid-] Dilatation: [4-] Effacement: [-100] Station: [0-] Presentation: [-vtx] Membranes: [ ruptured] Uterine Contractions: [reg-] FHT's: Category: [1-] Baseline: [-133] Reactive: [-R] Variability: [mod-] Decels: [none-] EXTREMITIES: No cyanosis or edema. BACK: Nontender without obvious deformity. No CVA tenderness. NEUROLOGICAL: Awake and alert. Motor and sensory grossly within normal limits. Five out of 5 muscle strength in all muscle groups. Normal speech. Results - Labs Group B Strep: Positive Assessment and Plan - Diagnosis (1) Amniotic fluid leaking Code(s): O42.90 - Premature rupture of membranes, unspecified as to length of time between rupture and onset of labor, unspecified weeks of gestation Status : Acute (2) Uterine contractions during Code(s): O62.2 - Other uterine inertia Status: Acute (3) 40 weeks gestation of Code(s): Z3A.40 - 40 weeks gestation of Status: Acute - Plan Plan admit this multiparous patient to labor and delivery, began IV penicillin per GBS protocol, monitor fetus and mother, anticipate vaginal delivery Discharge Plan - Physicians Team ED Provider: Jose Alfredo Tello Primary Care Provider: NOT REQUIRED, - Discharge Instructions Print Language: Monegasque
[2018-07-18 15:46] LABS: Hepatitis A IgM Antibody Nonreactive (Nonreactive); Hepatitits B Surface Antigen Nonreactive (Nonreactive)
[2018-07-18] MEDS ORDERED: Diphtheria/Tetanus/Pertussis Vaccine Inj 0.5 ML Syringe IM ONE (16:00)
[2018-07-18] MEDS ORDERED: Measles/Mumps/Rubella Vaccine Inj 0.5 ML Vial SQ ONE (16:00)
[2018-07-18] MEDS ORDERED: Methylergonovine Inj 0.2 MG/ML Ampul IM ONE (17:11)
--- NOTE | 2018-07-18 17:18 | P.PNADD ---
Addendum to Inpatient Note Additional information: S: Residents notified of increase in patient's vaginal bleeding, patient soaking sanitary napkin within 30 minutes, no clots expressed. Per nurse, started on Pitocin, fundus was firm. Resident and attending responded. 32-year-old that delivered via spontaneous vaginal delivery around 7:30 a.m. Patient had a second-degree laceration repair alongside some labial laceration repairs. Hemostasis was maintained. O: General: Well-appearing female, laying comfortably in bed, fatigued, no acute distress. Abdomen: Fundus firm, below the umbilicus. Genital: Normal genitalia, incisions intact, no active bleeding appreciated. Sanitary napkin fully soaked. A/P: Fundal pressure when applied showed no clots or active bleeding. Uterine sweep: no clots evacuated. minimal bleeding Methergine 0.2mg IM administered. Continue to monitor. Case seen and discussed with Dr. Bernal. Pt seen and examined with resident. No brisk active bleeding noted. Agree with Methergine IM.
[2018-07-18] MEDS: Senna/Docusate Sodium 8.6/50 MG Tablet PO SCH (20:11)
[2018-07-18] MEDS ORDERED: Zolpidem Tartrate 5 MG Tablet PO PRN (21:00)
--- NOTE | 2018-07-19 08:36 | P.PNOB ---
Subjective Interval history: Patient is a 32-year-old delivered at 40 weeks and 1 day. Patient is day 1 after . Patient's pain is well-controlled. Patient reports eating and drinking without any nausea or vomiting. Patient reports minimal bleeding. Patient has passed gas but no bowel movements. Patient is walking without lower extremity pain or shortness of breath. Patient reports desire for contraception and breast-feeding. Objective Vital Signs/I&O: Vital Signs 07/18/18 08:37 07/18/18 09:01 07/18/18 09:07 Temperature 98.3 F Pulse Rate 75 83 Respiratory Rate 14 16 Blood Pressure 91/54 L 95/49 L 07/18/18 09:15 07/18/18 09:31 07/18/18 10:00 Temperature 97.7 F Pulse Rate 64 79 71 Respiratory Rate 18 Blood Pressure 103/53 L 115/59 L 114/53 L 07/18/18 20:00 Temperature 97.2 F L Pulse Rate 78 Respiratory Rate 18 Blood Pressure 127/62 Result Diagrams: 07/18/18 04:32 Objective Remarks: GENERAL: Well-nourished, well-developed patient. CARDIOVASCULAR: Regular rate and rhythm without murmurs, gallops, or rubs. RESPIRATORY: Breath sounds equal bilaterally. No accessory muscle use. ABDOMEN/GI: Abdomen soft, non-tender. Fundus: Firm, non-tender at umbilicus. GENITOURINARY: Light to moderate bleeding. EXTREMITIES: No cyanosis or edema, non-tender, without signs of DVT. Medications and IVs: Active Medications Acetaminophen (Tylenol) 650 mg PO Q4H PRN PRN Reason: PAIN SCALE 1 TO 2 Last Admin: 07/18/18 12:04 Dose: 650 mg Al Hydroxide/Mg Hydroxide (Milk Of Magnesia Liq) 30 ml PO Q12H PRN PRN Reason: Mild Constipation Benzocaine (Americaine 20% Top [place]) 1 spray TOPICAL Q4H PRN PRN Reason: For Perineum Discomfort Last Admin: 07/18/18 10:33 Dose: 1 spray Bisacodyl (Dulcolax Supp) 10 mg RECTAL DAILY PRN PRN Reason: SEVERE CONSITIPATION Fentanyl/Bupivacaine/Sodium Chlor (Fentanyl 2 Mcg-Bupiv 0.125% Epi) 150 mls @ 12 mls/hr EPIDURAL PRN PRN PRN Reason: for Labor Pain Last Admin: 07/18/18 05:58 Dose: 12 mls/hr Oxytocin (Pitocin 30 Units/Ns 500 Ml Premix) 30 units in 500 mls @ 100 mls/hr IV.CONT UNSCH PRN PRN Reason: Heavy bleeding Last Admin: 07/18/18 15:47 Dose: 100 mls/hr Ibuprofen (Motrin) 800 mg PO Q8H PRN PRN Reason: For Cramping Last Admin: 07/19/18 05:56 Dose: 800 mg Lactulose (Lactulose Liq) 30 ml PO DAILY PRN PRN Reason: SEVERE CONSITIPATION Methylergonovine Maleate (Methergine) 0.2 mg PO Q8H [facility] Last Admin: 07/19/18 02:22 Dose: 0.2 mg Naloxone HCl (Narcan Inj) 0.1 mg IV.PUSH Q2M PRN PRN Reason: for opiate reversal Ondansetron HCl (Zofran Odt) 4 mg PO Q6H PRN PRN Reason: NAUSEA OR VOMITING Oxycodone/Acetaminophen (Percocet 5/325 Mg) 1 tab PO Q4H PRN PRN Reason: PAIN SCALE 3 TO 5 Last Admin: 07/18/18 16:37 Dose: 1 tab Oxycodone/Acetaminophen (Percocet 5/325 Mg) 2 tab PO Q4H PRN PRN Reason: PAIN SCALE 6 TO 10 Last Admin: 07/19/18 08:00 Dose: 2 tab Senna/Docusate Sodium (Nadya-Colace) 1 tab PO BID [facility] Last Admin: 07/18/18 20:11 Dose: 1 tab Sennosides (Senokot) 17.2 mg PO Q12H PRN PRN Reason: Moderate Constipation Sodium Chloride (Ns Flush) 2 ml IV.FLUSH BID [facility] Sodium Chloride (Ns Flush) 2 ml IV.FLUSH PRN PRN PRN Reason: FLUSH AFTER USING IV ACCESS Last Admin: 07/19/18 08:05 Dose: 2 ml Witch Rere/Glycerin (Tucks Pads) 1 applicatio RECTAL QID PRN PRN Reason: HEMORRHOIDS Last Admin: 07/18/18 10:33 Dose: 1 applicatio Zolpidem Tartrate (Ambien) 5 mg PO HS PRN PRN Reason: SLEEP Assessment and Plan - Diagnosis (1) Vaginal after () Code(s): O34.219 - Maternal care for unspecified type scar from previous delivery Status: Acute - Plan Patient is a 32-year-old delivered at 40 weeks. Patient is day 1 after . s/p 0.2 mg Methergine q8 hours for bleeding. Continue routine care. Motrin and Percocet when necessary for pain. Encourage OOB. Pelvic rest for 6 weeks will need follow-up appointment at that time. Contraception: Abstinence per patient. appropriately. Anticipate discharge tomorrow. Discussed with Dr. Bernal. - Attending Attestation The exam, history, and the medical decision-making described in the above note were completed with the assistance of the resident physician. I reviewed and agree with the findings presented. I attest that I had a [id number] encounter with the patient on the same day, and personally performed and documented my assessment and findings in the medical record.
[2018-07-19] MEDS: Senna/Docusate Sodium 8.6/50 MG Tablet PO SCH ×2 (09:45→20:54)
--- NOTE | 2018-07-20 09:06 | P.PNOB ---
Subjective Interval history: Patient is a 32-year-old delivered at 40 weeks. Patient is day 2 after . Patient's pain is well-controlled. Patient reports eating and drinking without any nausea or vomiting. Patient reports minimal bleeding. Patient has passed gas but no bowel movements. Patient is walking without lower extremity pain or shortness of breath. Patient is breast-feeding appropriately. Objective Vital Signs/I&O: Vital Signs 07/19/18 20:00 Temperature 98.1 F Pulse Rate 67 Respiratory Rate 18 Blood Pressure 104/62 Result Diagrams: 07/18/18 04:32 Objective Remarks: GENERAL: Well-nourished, well-developed patient. CARDIOVASCULAR: Regular rate and rhythm without murmurs, gallops, or rubs. RESPIRATORY: Breath sounds equal bilaterally. No accessory muscle use. ABDOMEN/GI: Abdomen soft, non-tender. Fundus: Firm, non-tender at umbilicus. GENITOURINARY: Light to moderate bleeding. EXTREMITIES: No cyanosis or edema, non-tender, without signs of DVT. Medications and IVs: Active Medications Acetaminophen (Tylenol) 650 mg PO Q4H PRN PRN Reason: PAIN SCALE 1 TO 2 Last Admin: 07/18/18 12:04 Dose: 650 mg Al Hydroxide/Mg Hydroxide (Milk Of Magnesia Liq) 30 ml PO Q12H PRN PRN Reason: Mild Constipation Benzocaine (Americaine 20% Top [place]) 1 spray TOPICAL Q4H PRN PRN Reason: For Perineum Discomfort Last Admin: 07/18/18 10:33 Dose: 1 spray Bisacodyl (Dulcolax Supp) 10 mg RECTAL DAILY PRN PRN Reason: SEVERE CONSITIPATION Fentanyl/Bupivacaine/Sodium Chlor (Fentanyl 2 Mcg-Bupiv 0.125% Epi) 150 mls @ 12 mls/hr EPIDURAL PRN PRN PRN Reason: for Labor Pain Last Admin: 07/18/18 05:58 Dose: 12 mls/hr Oxytocin (Pitocin 30 Units/Ns 500 Ml Premix) 30 units in 500 mls @ 100 mls/hr IV.CONT UNSCH PRN PRN Reason: Heavy bleeding Last Admin: 07/18/18 15:47 Dose: 100 mls/hr Ibuprofen (Motrin) 800 mg PO Q8H PRN PRN Reason: For Cramping Last Admin: 07/20/18 08:08 Dose: 800 mg Lactulose (Lactulose Liq) 30 ml PO DAILY PRN PRN Reason: SEVERE CONSITIPATION Methylergonovine Maleate (Methergine) 0.2 mg PO Q8H [facility] Last Admin: 07/20/18 02:54 Dose: 0.2 mg Naloxone HCl (Narcan Inj) 0.1 mg IV.PUSH Q2M PRN PRN Reason: for opiate reversal Ondansetron HCl (Zofran Odt) 4 mg PO Q6H PRN PRN Reason: NAUSEA OR VOMITING Oxycodone/Acetaminophen (Percocet 5/325 Mg) 1 tab PO Q4H PRN PRN Reason: PAIN SCALE 3 TO 5 Last Admin: 07/19/18 12:33 Dose: 1 tab Oxycodone/Acetaminophen (Percocet 5/325 Mg) 2 tab PO Q4H PRN PRN Reason: PAIN SCALE 6 TO 10 Last Admin: 07/20/18 05:28 Dose: 2 tab Senna/Docusate Sodium (Nadya-Colace) 1 tab PO BID [facility] Last Admin: 07/19/18 20:54 Dose: 1 tab Sennosides (Senokot) 17.2 mg PO Q12H PRN PRN Reason: Moderate Constipation Sodium Chloride (Ns Flush) 2 ml IV.FLUSH BID [facility] Last Admin: 07/19/18 22:34 Dose: 2 ml Sodium Chloride (Ns Flush) 2 ml IV.FLUSH PRN PRN PRN Reason: FLUSH AFTER USING IV ACCESS Last Admin: 07/19/18 08:05 Dose: 2 ml Witch Rere/Glycerin (Tucks Pads) 1 applicatio RECTAL QID PRN PRN Reason: HEMORRHOIDS Last Admin: 07/18/18 10:33 Dose: 1 applicatio Zolpidem Tartrate (Ambien) 5 mg PO HS PRN PRN Reason: SLEEP Assessment and Plan - Diagnosis (1) Vaginal after () Code(s): O34.219 - Maternal care for unspecified type scar from previous delivery Status: Acute - Plan Patient is a 32-year-old delivered at 40 weeks. Patient is day 2 after . s/p 0.2 mg Methergine q8 hours for bleeding. Continue routine care. Motrin and Percocet when necessary for pain. Encourage OOB. Pelvic rest for 6 weeks will need follow-up appointment at that time. Contraception: Abstinence per patient. appropriately. Anticipate discharge today Discussed with Dr. Tello.
[2018-07-20] MEDS: Senna/Docusate Sodium 8.6/50 MG Tablet PO SCH (10:39)
== END 2018-07-20 14:15 | disposition home or self-care (01) | DRG 807 ==
LOC: HOBED 03:56 → H2E 04:24 → H1EA 10:14
PROVIDERS: ADMIT Obstetrics & Gynecology Maternal & Fetal Medicine; ATTEND Obstetrics & Gynecology Maternal & Fetal Medicine
CPT/HCPCS: 59025; 80074; 85025; 86762; 86900; 86901; G0481; G0483; J2210; J2540; J2590; J3010; J7120